=== PATIENT | female | born 1960 | race Hispanic/Latino ===

== ENCOUNTER 2016-09-09 06:09 | Day surgery (SDC) | payer OTHER ==
--- NOTE | 2016-09-03 11:00 | Anesthesia Consultation ---
Anesthesia Consult and Med Hx - Airway Anesthetic Teeth Evaluation: Good, Poor, Chipped ROM Head & Neck: Inadequate Mental/Hyoid Distance: Inadequate Mallampati Class: Class IV Intubation Access Assessment: Possibly Difficult - Pulmonary Exam CTA: Yes - Cardiac Exam Cardiac Exam: RRR - Pre-Operative Health Status ASA Pre-Surgery Classification: ASA4 Proposed Anesthetic Plan: General Nerve Block: IS - Pre-Anesthesia Comment Pre-Anesthesia Comments: Patient is possible difficult intubation. Patient has h /o chronic CHF compensated, HTN, HLD, high LESTER risk, CKD, migraine SOLORZANO. Medical clearance in chart. - Pulmonary Hx Smoking: No Hx Sleep Apnea: No (LESTER PRE SCREEN HIGH RISK) - Cardiovascular System Hx Hypertension: Yes (X 14 YRS) Hx Heart Attack/AMI: No Hx Cardia Arrhythmia: No - Central Nervous System Hx Psychiatric Problems: Yes (depression) - Endocrine Hx Renal Disease: Yes (CKD) Hx Non-Insulin Dependent Diabetes: No - Hematic Hx Anemia: Yes (NOT RECENT) - Other Systems Hx Cancer: No Hx Obesity: Yes (BMI 64) - Additional Comments Anesthesia Medical History Comments: no anesthesia exposure.
[~2016-09-09 06:09] MED LIST: NACL 0.9% 1000 ML 1,000 ML IV SCH; PEPCID PO NR; SUBLIMAZE IV NR; VANCOMYCIN/NS 1 GM/250 ML 250 ML IV NR; VERSED IV NR
[2016-09-09] MEDS ORDERED: NACL BACTERIOSTATIC INFILTRATI ONE (06:35)
[2016-09-09] MEDS ORDERED: REGLAN IV NR (07:00)
[2016-09-09] MEDS ORDERED: DIPRIVAN 10 MG/ML IV ONE (07:09)
[2016-09-09] MEDS ORDERED: DILAUDID ONE (07:09)
[2016-09-09] MEDS ORDERED: XYLOCAINE MPF 2% ONE ×2 (07:10→07:16)
[2016-09-09] MEDS ORDERED: DECADRON ONE (07:14)
[2016-09-09] MEDS ORDERED: NACL 0.9% IR ONE ×2 (07:43)
[2016-09-09] MEDS ORDERED: ADRENALIN IV ONE ×2 (07:43)
[2016-09-09] MEDS ORDERED: ZOFRAN IV PRN (08:08)
[2016-09-09] MEDS ORDERED: DILAUDID IV PRN (08:08)
--- NOTE | 2016-09-09 08:08 | Anesthesia Day of Surgery ---
Anesthesia Day of Surgery - Day of Surgery Patient Examined: Yes Patient H&P Reviewed: Yes Patient is NPO: Yes Beta Blockers: Yes Cardiac Clearance: (Medical clearance in chart)
[2016-09-09] MEDS ORDERED: ePHEDrine SULFATE ONE (08:09)
[2016-09-09] MEDS ORDERED: ZOFRAN ONE (09:09)
[2016-09-09] MEDS ORDERED: NACL 0.9% 1000 ML 1,000 ML ONE (09:17)
[2016-09-09] MEDS ORDERED: PERCOCET 5/325 PO PRN (09:30)
--- NOTE | 2016-09-09 09:47 | Short Stay Summary ---
Short Stay Documentation Date of service: 09/09/16 - History H&P: obtained from office - Allergies and Medications Current Medications: Allergies Penicillins Allergy (Verified 08/28/16 09:41) Hives Tetanus Vaccines & Toxoid Allergy (Verified 08/28/16 09:41) Hives Home Medications Medication Instructions Recorded Confirmed Last Taken Type Amlodipine Besylate/Benazepril 1 tab PO DAILY 09/03/16 09/09/16 09/08/16 History [Lotrel 10-40 mg] Furosemide [Lasix TAB] 40 mg PO QDAY 09/03/16 09/09/16 09/08/16 History HYDROcodone/APAP 5-325 [[place] 1 tab PO PRN PRN 09/03/16 09/09/16 1 Month Ago History 5-325 mg TAB] Labetalol HCl 300 mg PO TID 09/03/16 09/09/16 09/09/16 05:00 History Sertraline [Zoloft] 150 mg PO QDAY 09/03/16 09/09/16 09/08/16 History traMADol [Ultram] 50 mg PO Q4HR PRN 09/03/16 09/09/16 09/04/16 History Active Medications Famotidine (Pepcid) 20 mg PO PREOP NR Stop: 09/09/16 23:59 Last Admin: 09/09/16 06:33 Dose: 20 mg Fentanyl (Sublimaze) 100 mcg IV ONCE NR Stop: 09/09/16 23:59 Last Admin: 09/09/16 07:18 Dose: 50 mcg Hydromorphone HCl (Dilaudid) 0.25 mg IV Q10MIN PRN PRN Reason: Pain, Moderate (4-6) Stop: 09/09/16 23:59 Sodium Chloride (Nacl 0.9% 1000 Ml) 1,000 mls @ 42 mls/hr IV DIRECT SANDRO Last Admin: 09/09/16 06:45 Dose: 42 mls/hr Vancomycin HCl (Vancomycin/Ns 1 Gm/250 Ml) 250 mls @ 167 mls/hr IV PREOP NR PRN Reason: Protocol Stop: 09/09/16 23:02 Last Admin: 09/09/16 07:05 Dose: 167 mls/hr Metoclopramide HCl (Reglan) 10 mg IV PREOP NR Stop: 09/09/16 23:59 Last Admin: 09/09/16 07:05 Dose: 10 mg Midazolam HCl (Versed) 2 mg IV PREOP NR Stop: 09/09/16 23:59 Last Admin: 09/09/16 07:18 Dose: 2 mg Oxycodone/Acetaminophen (Percocet 5/325) 1 tab PO Q6H PRN PRN Reason: Pain, Moderate (4-6) Stop: 09/16/16 15:31 - Brief post op/procedure progress note Date of procedure: 09/09/16 Pre-op diagnosis: persistent left shoulder AC joint arthritis, rotator cuff tear Post-op diagnosis: other (persistent left shoulder pain, AC joint arthritis, partial rotator cuff tear, adhesive capsulitis) Procedure: left shoulder arthroscopy subacromial decompression distal clavicle excision, debriedment of extensive subacromial bursitis, debriedment of partial rotator cuff tear, lysis of adhesions, manipulation under anesthesia Anesthesia: GETA Findings: as above Surgeon: ZACK SALGADO Estimated blood loss: none Pathology: none Condition: stable - Hospital course Hospital course: no complications - Disposition Condition at discharge: Stable Disposition: DISCHARGED TO HOME OR SELFCARE
--- NOTE | 2016-09-09 11:01 | Post Anesthesia Evaluation ---
- Post Anesthesia Evaluation Patient Participated: Yes Airway Patent: Yes Stable Respiratory Function: Yes Nausea/Vomiting: No Temp > 96.8F: Yes Pain Manageable: Yes Adequeate Hydration: Yes Anesthesia Complications: No Block Receding Appropriately: Yes Patient on Ventilator: No
[2016-09-09 11:27] VITALS: BP 135/80
--- NOTE | 2016-09-09 12:01 | Operative Report ---
PREOPERATIVE DIAGNOSES: Persistent left shoulder pain, acromioclavicular joint arthritis, rotator cuff tear, possible labral tear. POSTOPERATIVE DIAGNOSES: Persistent left shoulder pain, advanced acromioclavicular joint arthritic changes causing severe impingement upon the rotator cuff, extensive subacromial bursitis, marked loss of motion/adhesive capsulitis, partial thickness bursal as well as articular-sided rotator cuff tear involving the supraspinatus tendon. OPERATIVE PROCEDURE: Left shoulder arthroscopy, subacromial decompression, distal clavicle excision, debridement of extensive subacromial bursitis, lysis of adhesions, manipulation under anesthesia, debridement of partial thickness tearing of the supraspinatus tendon on both articular as well as bursal sides. SURGEON: Calvin Rangel M.D. AIRPORT SKILLED MAINTENANCE SUPERVISOR: Margi France, certified pest control technician. ANESTHESIA: General. PREOPERATIVE ANTIBIOTICS: Vancomycin 1 gram IV within 1 hour of skin incision. DVT PROPHYLAXIS: Thigh high SCD pumps to bilateral lower extremities. ESTIMATED BLOOD LOSS: Minimal. SPECIMENS: None. OPERATIVE INSTRUMENTATION: None. OPERATIVE COMPLICATIONS: None. OPERATIVE HISTORY AND PHYSICAL: This is a 55-year-old female who has had persistent progressively worsening of left shoulder pain, status post injury at work on 07/15/2014. The pain has failed to improve despite extensive nonoperative treatment and markedly limits her day to day activity. MRI scan was performed, which was positive for acromioclavicular joint arthritis as well as a rotator cuff tear. The patient's MRI findings and diagnosis were discussed at length after making sure the patient understood her diagnosis and all questions were answered and discussed treatment alternatives, surgical and nonsurgical including risks and benefits of both. After a long lengthy discussion, the patient opted to proceed with operative intervention. This will entail a left shoulder arthroscopy, subacromial decompression, distal clavicle excision, arthroscopic possible open rotator cuff repair and surgery as indicated. The risk of which were discussed to include, but not exclusive of infection, blood loss, nerve damage, loss of range of motion, and persistent pain. Again, the patient understood, all of her questions were answered and she wished to proceed with operative intervention. OPERATIVE PROCEDURE: The patient was seen in the preoperative holding room area at which point informed consent was reviewed and the appropriate left upper extremity was identified and then marked. Anesthesia then performed an interscalene block to the left upper extremity. After confirmation of adequate analgesia of the left upper extremity, the patient was then brought back to the operating room and placed supine on a standard operating table with the beach chair position already in place. General anesthesia was then administered and an LMA tube was inserted. After confirmation of adequate general anesthesia and checking appropriate placement of the LMA tube, we then made sure that all bony prominences were well padded. There were no wrinkles within the SCD pumps on bilateral lower extremities. Pillows were placed near the posterior aspect of her thigh, placed in slight flexion at the hips and knees making sure the popliteal fossa was free and clear and all bony prominences were well padded. The patient was then sat in the beach chair position using a beach chair position, which was already in place and the head was secured in nice neutral position. The well right arm was secured in neutral position as well at the patient's side with the aid of well arm gonzalez. Following this, the left upper extremity was then examined under anesthesia. The patient had marked loss of range of motion with forward flexion only to 160, abduction to 160, external rotation of 60 degrees, internal rotation of 50 degrees. Following this, the left upper extremity was then examined. There was no gross evidence of instability. Following this, the left upper extremity was then prepped and draped in the usual sterile fashion. After prepping and draping, a timeout was called and the appropriate left upper extremity was identified which again had been marked in the preoperative holding room area. We began our procedure by first making a standard posterior portal with #15 blade. Once the portal was established, a cannula with a blunt trocar was inserted into the intra-articular aspect of the glenohumeral joint. This went without difficulty or damage to articular cartilage. Once in place, arthroscopic camera was immediately placed in the anterior aspect of shoulder joint, we established anterior portal by first inserting an 18 gauge spinal needle under arthroscopic visualization, making sure to be between the subscap and biceps tendons. Once confirmed to be in appropriate position, a 15 blade was then used to establish an anterior portal. Once the port was established, the blunt trocar was inserted to widen the portal site and followed by arthroscopic probe. We began our diagnostic arthroscopy in the anterior aspect of the shoulder joint with the patient having a normal subscapularis tendon. There was some degenerative tearing of the anterior and superior labrum. There were copious amounts of adhesions located diffusely throughout the glenohumeral joint. There was normal articular cartilage of the glenohumeral joint. The biceps tendon was seen to be intact. Next, the shoulder was normal relation. The posterior labrum was seen to be intact and stable when probed. Inspection of axillary recess showed to be no loose bodies present. Inspection of the rotator cuff showed to be partial thickness tearing on the articular side undersurface of the supraspinatus tendon. This encompassed approximately 10% of the width of the tendon. This was gently debrided using a 4.0 meniscal shaver. The copious amounts of adhesions located diffusely at the glenohumeral joint were then debrided with the 4.0 meniscal shaver and hemostasis was achieved with the Arthrocare ablation wand. The degenerative wear and tearing of the anterior superior labrum was also debrided using 4.0 meniscal shaver. Following this, the arthroscopic pump was turned off making sure there was good hemostasis. Once this was confirmed, the arthroscopic pump was then turned back off. There was a negative drawer ____ any gross evidence of shoulder instability. Following this, the extraneous fluid was suctioned from the glenohumeral joint using the arthroscopic cannula. Following this, the arthroscopic instrumentation was removed from the glenohumeral joint and then placed in the subacromial space. Once in the subacromial space, we saw there was severe extensive subacromial bursitis. There was a third incision made in the lateral aspect of the shoulder in line with the distal clavicle away from the axillary nerve and we debrided the extensive subacromial bursitis and adhesions using the 4.0 meniscal shaver. Hemostasis was achieved with the Arthrocare ablation wand. Once completed, the arm was placed through a full range of motion. We saw there was severe impingement of the rotator cuff upon the undersurface of the acromion and distal clavicle. Following this, the soft tissue was removed from the undersurface of the acromion using Arthrocare ablation wand. Then, using a 4.0 hooded barrel bur, we carried out a subacromial decompression in standard fashion from inferior to superior, posterior and anterior. Following this, we turned our attention to the distal clavicle, which was also seen to be arthritic. We performed a distal clavicle excision to a depth of approximately 6 mm using the 4.0 hooded barrel bur. Once completed, we turned our attention back to the rotator cuff bursal side, we saw there was slight partial tearing compensating approximately 10% within the tendon which was gently debrided using a 4-0 meniscal shaver. Following this, the arm was again placed through a full range of motion. I saw there was no further impingement of the rotator cuff upon the undersurfaces of the acromion or the distal clavicle. Following this, the arthroscopic pumps were off and she had good hemostasis and once this was confirmed, ____ the fluid was suctioned from subacromial space using the arthroscopic cannula. Following this all the arthroscopic instrumentation was removed. The 3 portal sites were closed with 3-0 nylon in simple fashion. Adaptic, 4 x 4, ABD, paper tape small abduction sling was applied along with Donjoy Cryo Cuff blanket. The patient sat down from the beach chair in the supine position, was awakened from general anesthesia without complications, taken to the recovery room in stable condition. Standard postop orders were written. JOB# [id number] VS/IVON
--- NOTE | 2016-09-09 21:12 | Admit Criteria Form ---
Admission Criteria Documentation: AMBULATORY SURGERY EXCEPTION CRITERIA Ambulatory Surgery Exception Criteria ( Place 'X' for any and all applicable criteria): Surgery or procedure performed on ambulatory basis may require inpatient stay for[A] ANY ONE of the following(1)(2)(3)(4)(5)(6)(7)(8)(9): [X] I. A preoperative situation, condition, or finding that warrants inpatient stay as indicated by ANY ONE of the following: [] a) Inpatient care needed because of severity of a disease or condition rather than the surgery (eg, severe cardiac or respiratory disease, severe infection) (15) (16 ) (17) (18) [] b) Emergent procedure (eg, angioplasty for acute ischemia)(19) [] c) Complex surgical approach or situation as indicated by ANY ONE of the following(3): [] i) Open approach needed instead of usual endoscopic, transcatheter, or other less invasive procedure [] ii) Difficult approach because of previous operation [] iii) Airway monitoring required after open neck procedures(20)(21) [] iv) Large mass requiring unusually extensive dissection [] v) Additional complicating feature requiring inpatient care (eg, drain management)(22(23): [X] d) Major surgery in a pt with high anesthetic risk as indicated by ANY ONE of the following (2)(3)(5)(7)(8): [X] i) ASA risk class III or higher (severe systemic disease impairing function) [D] [] ii) Advanced age (eg, older than 85 years)(14)(24) [] iii) Symptomatic heart failure(25) [] iv) Symptomatic asthma or COPD(8)(21) [] v) Morbid obesity with hemodynamic or respiratory problems(20)( 21)(26)(27) [] vi) Obstructive sleep apnea(20)(21) [] vii) Former premature infants who are younger than 60 weeks [] viii) High risk for severe postoperative abnormalities (eg, severe postoperative hypocalcemia after parathyroidectomy for severe hyperparathyroidism)(27)( 28) [] ix) Unstable angina(25) [] e) Drug-related risk requiring inpatient stay as indicated by ANY ONE of the following(5)(10)(14)(32)(33) [] i) Procedure requires discontinuing drugs or other therapy (eg , antiarrhythmic medication, antiseizure medication), which necessitates inpatient observation or treatment.(18)(31) [] ii) Major surgery and high risk drug use as indicated by ANY ONE of the following: [] 1) Active abuse of cocaine or similar drug [] 2) Monoamine oxidase inhibitor use [] 3) Other drug identified as posing risk [] f) Inadequate outpatient care situation as indicated by ANY ONE of the following(5)(10)(14)(32)(33) [] i) Patient lives remote from medical facility and procedure has urgent complication potential, and temporary nearby residence cannot be arranged [] ii) Patient will have postprocedure incapacitation and inadequate assistance at home, or alternative level of care cannot be arranged. [] iii) Patient will have long general anesthesia or procedure side effect resolution time, and competent person to stay with patient on first postoperative night at home or alternative level of care cannot be arranged. []iv) Other inadequate outpatient situation that cannot be handled by other means [] II. A perioperative event, condition, or finding that warrants inpatient stay as indicated by ANY ONE of the following (1)(2)(3): [] a) Inadequate physiologic recovery: cardiovascular, respiratory, or hemodynamic status not normal or near preoperative baseline(18) [] b) Hemodynamic instability [] c) Patient not alert with near normal or baseline mental status [] d) Temperature not normal or as expected and not appropriate for outpatient treatment of condition [] e) Ambulatory or appropriate activity level status not yet achieved post procedure [E](34)(35)(36) [] f) Operative site not appropriate (eg, unexpected or excessive drainage or bleeding) [] g) Postoperative effects not resolved or adequately managed (eg, significant pain or vomiting not appropriate for outpatient or next level of care)(10)(12) [] h) Complicating features requiring inpatient care as indicated by ANY ONE of the following(37): [] i) Severe complications of procedure (eg, bowel injury, airway compromise, vascular injury,severe hemorrhage) [] ii) Extensive (eg, dissection far beyond usual scope of procedure ) or prolonged (eg, 120 minutes beyond usual) surgery needed requiring inpatient postoperative care [] iii) Conversion to an open or complex procedure that requires inpatient care (eg, open vs laparoscopic cholecystectomy, abdominal vs vaginal hysterectomy)(38) [] iv) Comorbid condition or test result identified during or post procedure that requires inpatient care (7) [] v) Malignant hyperthermia(30) [] vi) Other complicating feature requiring inpatient care(22)(23) Inpatient stay may be needed until ALL of the following are present (1)(2)(3)(4) (5)(6)(10)(14)(33)(40): []a) Physiologic recovery: cardiovascular, respiratory, and hemodynamic status normal or near preoperative baseline []b) Hemodynamic stability []c) Patient alert, with near normal or baseline mental status []d) Temperature appropriate: patient afebrile or temperature appropriate for outpt treatment of condition []e) Activity level appropriate: ambulatory or appropriate activity level post procedure []f) Operative site appropriate as indicated by ALL of the following: []i) Site dry or with expected drainage []ii) Any blood noted is as expected for procedure. []g) Postoperative effects resolved or managed as indicated by ALL of the following: []i) Pain management appropriate for outpatient (or next level of) care(10) []ii) Minimal nausea and vomiting: if present, successfully treated with oral medication(12) []iii) Headache, dizziness, or drowsiness (if present) are mild. []h) Voiding status acceptable as indicated by ANY ONE of the following: []i) Voiding spontaneously []ii) No voiding but instructions given for follow-up in 6 to 8 hours []iii) Urinary catheter in place, and instructions given for follow-up []i) Complicating features requiring inpatient care manageable at a lower level of care(37) []j) Comorbid conditions manageable at a lower level of care(37) The original [employer] content created by [employer] has been revised. The portions of the content which have been revised are identified through the use of italic text or in bold, and [facility] [employer] has neither reviewed nor approved the modified material. All other unmodified content is copyright [employer]. Please see references footnoted in the original [employer] edition 2016 Admission Criteria Met: Yes
== END 2016-09-09 11:17 | disposition home or self-care (01) ==
LOC: OR 06:09
PROVIDERS: ATTEND Orthopaedic Surgery
DX: S46.012A Strain of muscle(s) and tendon(s) of the rotator cuff of left shoulder, initial encounter (principal); M13.812 Other specified arthritis, left shoulder; M75.52 Bursitis of left shoulder; M75.02 Adhesive capsulitis of left shoulder; I13.10 Hypertensive heart and chronic kidney disease without heart failure, with stage 1 through stage 4 chronic kidney disease, or unspecified chronic kidney disease; N18.9 Chronic kidney disease, unspecified; I50.9 Heart failure, unspecified; E78.00 Pure hypercholesterolemia, unspecified; G43.909 Migraine, unspecified, not intractable, without status migrainosus; F32.9 Major depressive disorder, single episode, unspecified; D64.9 Anemia, unspecified; E66.9 Obesity, unspecified; Z68.44 Body mass index [BMI] 60.0-69.9, adult; X58.XXXA Exposure to other specified factors, initial encounter; Y93.9 Activity, unspecified; Y92.9 Unspecified place or not applicable; Y99.9 Unspecified external cause status
CPT/HCPCS: 29823; 29824; 29826; 29827; A4217; J0171; J1100; J1170; J2250; J2405; J2704; J2765; J3010; J3370; J7030; L1830